=== PATIENT | female | born 1940 | race Caucasian/White ===

== ENCOUNTER 2017-10-18 21:42 | Emergency (ER) | payer MEDICARE, BC ==
[2017-10-18 22:15] VITALS: BP 129/64; PULSE 71; O2SAT 99
[2017-10-18] MEDS ORDERED: XYLOCAINE 1% HCL 20 ML MDV IJ ONE (22:34)
[2017-10-18] MEDS ORDERED: Adacel Vial IM ONE ×2 (22:34→22:45)
--- NOTE | 2017-10-18 22:42 | ERPHSYRPT ---
- History of Present Illness Time Seen by Provider: 10/18/17 22:21 Source: patient Exam Limitations: no limitations Patient Subjective Stated Complaint: pt states she got her feet caught in her walker and fell backwards and hit her head. Triage Nursing Assessment: pt alert and oreinted. answers questions approp. respirations nonlabored with lungs cta. respirations nonlabored with lungs cta. pt ambulatory with walker- steady gait noted. dried blood to rt posterior head. Physician History: Pt states, she fell, when standing up from the computer chair, her leg got cought up in the walker, fell backward, hit her head against the floor, denies LOC, severe headaches, nausea, vomiting or other injury, except small laceration to the right hand. Occurred: just prior to arrival Severity: mild Head Injury Location: occipital Method of Injury: fell Loss of Consciousness: no loss of consciousness Associated Symptoms: denies symptoms Allergies/Adverse Reactions: albuterol Adverse Reaction (Verified 10/18/17 23:47) UPSET STOMACH ciprofloxacin [From Cipro] Adverse Reaction (Verified 10/18/17 23:47) UPSET STOMACH ciprofloxacin HCl [From Cipro] Adverse Reaction (Verified 10/18/17 23:47) UPSET STOMACH Sulfa (Sulfonamide Antibiotics) Adverse Reaction (Verified 10/18/17 23:47) UPSET STOMACH Home Medications: Budesonide/Formoterol Fumarate [Symbicort 160-4.5 Mcg Inhaler] 2 puff IH BID 03/08 [History] Cholecalciferol (Vitamin D3) [Vitamin D] 1,000 unit PO DAILY 04/05/13 [ History] Clonazepam 1 mg PO BID 04/05/13 [History] Duloxetine HCl [Cymbalta] 60 mg PO DAILY 04/05/13 [History] Levalbuterol HCl [Xopenex] 0.63 mg IH TID 04/05/13 [History] Levothyroxine Sodium 112 Mcg [Synthroid 112 Mcg] 125 mcg PO DAILY 04/05/13 [History] Tiotropium [place] Inhaler [Spiriva 18 Mcg/Cap Inhaler] 2 puffs IN BID [History] Gabapentin [Neurontin] 300 mg PO DAILY 08/23/13 [History] Atorvastatin Calcium [Lipitor 20MG Tablet] 20 mg PO HS 02/12/17 [History] Iron,Carb/Vit C/Vit B12/Folic [Iron 100 Plus Tablet] 1 each PO DAILY 02/12/17 [ History] Hx Tetanus, Diphtheria Vaccination/Date Given: No (unknown) Hx Influenza Vaccination/Date Given: Yes (2012) Hx Pneumococcal Vaccination/Date Given: Yes - Review of Systems Constitutional: No Symptoms Skin: Other (small laceration to scalp and right hand) All Other Systems: Reviewed and Negative - Past Medical History Pertinent Past Medical History: Yes Neurological History: Peripheral Neuropathy ENT History: Cataracts Cardiac History: High Cholesterol Respiratory History: Asthma, COPD, Emphysema Endocrine Medical History: Diabetes Type II Musculoskeletal History: Fibromyalgia, Fractures, Osteoarthritis, Osteoporosis GI Medical History: Diverticulitis, Esophageal Disorder, GERD, Gallbladder Disease, GI Bleed, Hemorrhoids, Hernia, Irritable Bowel, Polyps History: No Pertinent History Psycho-Social History: Anxiety, Depression Female Reproductive Disorders: Breast Cancer, Cervical Cancer Other Medical History: "LYMPH NODES DO NOT REMOVE THE BLOOD FROM MY LEGS" States "new dx of scleroderma" - Past Surgical History Past Surgical History: Yes Neuro Surgical History: No Pertinent History Cardiac: No Pertinent History Respiratory: No Pertinent History Gastrointestinal: Appendectomy, Cholecystectomy, Colon Resection Genitourinary: Other Musculoskeletal: No Pertinent History Female Surgical History: Section, Hysterectomy Other Surgical History: rt breast cancer removed,carpel tunnel bilateral, cataracts, THYROIDECTOMY,BLADDER repair, left ankle fx repair - Social History Smoking Status: Never smoker Exposure to second hand smoke: No Drug Use: none Patient Lives Alone: No - Nursing Vital Signs Nursing Vital Signs: Initial Vital Signs Temperature 98.6 F 10/18/17 22:00 Pulse Rate 71 10/18/17 22:00 Respiratory Rate 18 10/18/17 22:00 Blood Pressure 129/64 10/18/17 22:00 O2 Sat by Pulse Oximetry 99 10/18/17 22:00 Pain Scale Pain Intensity 5 - Michael Coma Score Best Eye Response (Michael): (4) open spontaneously Best Verbal Response ([place]): (5) oriented Best Motor Response (Michael): (6) obeys commands Michael Total: 15 - Physical Exam General Appearance: no apparent distress Head Injury: lacerations (1.5 cm scalp laceration to the right occipital area, no bleeding, or large hematoma), tenderness Eye Exam: bilateral eye: PERRL, EOMI ENT Exam: No evidence of ENT injury Neck Exam: supple, trachea midline, normal alignment, normal inspection, No muscle spasm, No pain on movement of neck, No mid-line tenderness Cardiovascular/Respiratory Exam: chest non-tender, normal breath sounds, regular rate/rhythm, heart sounds normal, no ecchymosis, no JVD, no respiratory distress Gastrointestinal/Abdominal Exam: soft, non tender, no distention, no mass, no guarding Back Exam: other (kyphotic spine, nontender.), No CVA tenderness Extremity Exam: non-tender, normal inspection (except 1 cm superficial skintear to the right dorsal hand, no swelling, bleeding or deformity.) Mental Status Exam: alert, oriented x 3, cooperative director gift Exam: normal speech Coordination/Gait Exam: normal gait Motor/Sensory Exam: no motor deficit Skin Exam: normal color, warm, dry SpO2 Interpretation: normal SpO2: 99 Oxygen Delivery: Room Air Procedures - Laceration/Wound Repair Head Wound Location: head Wound Length (cm): 1.5 Wound's Depth, Shape: into muscle, linear Wound Explored: clean Irrigated: Yes Hibiclens Prep: No Anesthesia: local, 1% Lidocaine Volume Anesthetic (ccs): 5 Wound Repaired With: Powell Number of Sutures: 3 Sterile Dressing Applied?: Yes Progress: 10/18/17 23:59 Pt tolerated stapling well. - Course Nursing assessment & vital signs reviewed: Yes - CT Exams Head CT Interpretation: Negative, Tele-radiologist Report Ordered Tests: Active Orders 24 hr Category Date Time Status Prepare for Sutures STAT Care 10/18/17 22:34 Active Sutures STAT Care 10/18/17 22:35 Active Wound Care STAT Care 10/18/17 22:34 Active HEAD WITHOUT CONTRAST [CT] Stat Exams 10/18/17 22:35 Taken Medication Summary Discontinued Medications Generic Name Dose Route Start Last Admin Trade Name Freq PRN Reason Stop Dose Admin Diphtheria/Tetanus/Acell Pertussis 0.5 ml 10/18/17 22:34 10/18/17 22:53 Adacel Vial IM 10/18/17 22:35 0.5 ml .ONCE ONE Administration Diphtheria/Tetanus/Acell Pertussis Confirm 10/18/17 22:45 Adacel Vial Administered 10/18/17 22:46 Dose 0.5 ml IM .STK-MED ONE Lidocaine HCl 5 ml 10/18/17 22:34 10/18/17 22:54 Xylocaine 1% Hcl 20 Ml Mdv IJ 10/18/17 22:35 5 ml STAT ONE Administration Lidocaine HCl Confirm 10/18/17 22:44 Xylocaine 1% Hcl 20 Ml Mdv Administered 10/18/17 22:45 Dose 5 ml .ROUTE .STK-MED ONE - Progress Progress: unchanged Progress Note: 10/18/17 23:59 Pt has been stable, alert and oriented x4, denies severe headaches, nausea. I discussed CT result with her and her , she is being discharged home in good condition to rest x 2-3 days, and follow up with her physician, return if severe headaches, vomiting, lethargy ! Counseled pt/family regarding: diagnosis, need for follow-up, rad results - Departure Time of Disposition: 00:01 Departure Disposition: Home Clinical Impression: Occipital scalp laceration Qualifiers: Encounter type: initial encounter Qualified Code(s): S01.01XA - Laceration without foreign body of scalp, initial encounter Condition: Stable Critical Care Time: No Referrals: ELIZABETH RAMSEY [Primary Care Provider] - Instructions: Minor Head Injury (DC), Laceration Repair With Danial (DC) Additional Instructions: Rest x 2-3 days, follow up with your physician in 2-3 days, removal of the danial after 1 week! return if severe headaches, vomiting, lethargy !
[2017-10-18] MEDS ORDERED: XYLOCAINE 1% HCL 20 ML MDV ONE (22:44)
--- NOTE | 2017-10-19 14:42 | XRAY ---
Exam: CT of the head without IV contrast from 10/18/2017. CTDI: 48.76 Comparison: CT of the head without IV contrast from 09/17/2017. Indication: 77-year-old female patient fell, striking right posterior aspect of head against floor. Technique: Non-IV contrast axial images were obtained through the brain. Reconstructed coronal and sagittal images were created and reviewed. Findings: The ventricles appear of normal size. No focal mass effect or midline shift is seen. There is no evidence of acute intracranial bleed or abnormal extra-axial fluid collection. No significant chronic microvascular white matter disease is seen. No low attenuation territorial infarct or evidence of focal intracranial edema is seen. There is mild prominence of the cortical sulci and cisterns, not inappropriate for the patient's age. I again see mild hyperostosis frontalis interna. Atherosclerotic vascular calcification is seen within the distal vertebral arteries bilaterally as well as the internal carotid arteries within the carotid siphons. 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 The remainder of the paranasal sinuses appears essentially clear. The mastoid air cells are adequately aerated without mastoid effusion. No fracture of the calvarium of the skull is seen. No significant scalp hematoma is seen. Impression: 1. No acute intracranial bleed or other acute intracranial process is seen. This is unchanged from 09/17/2017. 2. Mild hyperostosis frontalis interna. This is unchanged. No fracture of the calvarium of the skull is seen.
== END 2017-10-19 00:30 | disposition home or self-care (01) ==
LOC: ED 21:42
DX: S01.01XA Laceration without foreign body of scalp, initial encounter (principal); W01.198A Fall on same level from slipping, tripping and stumbling with subsequent striking against other object, initial encounter; Y92.009 Unspecified place in unspecified non-institutional (private) residence as the place of occurrence of the external cause; Z79.899 Other long term (current) drug therapy
CPT/HCPCS: 12001; 70450; 90471; 90715; 96372; 99284

== ENCOUNTER 2018-09-03 11:33 | Emergency (ER) | payer MEDICARE, BC | END 2018-09-03 12:03 | disposition left against medical advice (07) | LOC: ED 11:33 | DX: K92.1 Melena (principal) | CPT/HCPCS: 99282; G0463 ==

== ENCOUNTER 2018-09-03 13:07 | Emergency (ER) | payer MEDICARE, BC ==
--- NOTE | 2018-09-03 13:49 | ERPHSYRPT ---
- History of Present Illness Time Seen by Provider: 09/03/18 13:30 Source: patient, family Exam Limitations: no limitations Patient Subjective Stated Complaint: pt here for bleeding from rectum for a couple days now. pt denies pain. but states she is nauseated, has not eat since , she was to have colonoscopy on wednesday but she felt to bad and canceled the scope, Triage Nursing Assessment: pt arrived per wc, alert, pale, skin warm and dry. resp easy. abd soft, nontender. no edema Physician History: 78 y/o white female Amish, presents with intermittent rectal bleeding for less than 48 hours. 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 Camacho ([place] ), ordered a bowel prep for this past and a colonoscopy for yesterday. pt cancelled the colonscopy because pt vomited up prep and had diarrhea. it persisted and blood noted in bms. pt has not eaten or drank well since she began prep. of note, pts stated pt was in [facility] a couple of months ago for sig anemia and was on iron infusion tx. pt not on anticoag tx, denies liver dz, denies xs asa/nsaid use. pt denies abd pain. pt did recently undergo a normal upper endoscopy per pts spouse. pt is soa when ambulating Timing/Duration: day(s) (2) Severity: moderate Associated Symptoms: nausea, shortness of breath (when attempts to ambulate), No vomiting, No abdominal pain Allergies/Adverse Reactions: albuterol Adverse Reaction (Verified 09/03/18 13:27) UPSET STOMACH ciprofloxacin [From Cipro] Adverse Reaction (Verified 09/03/18 13:27) UPSET STOMACH ciprofloxacin HCl [From Cipro] Adverse Reaction (Verified 09/03/18 13:27) UPSET STOMACH Sulfa (Sulfonamide Antibiotics) Adverse Reaction (Verified 09/03/18 13:27) UPSET STOMACH Home Medications: Budesonide/Formoterol Fumarate [Symbicort 160-4.5 Mcg Inhaler] 2 puff IH BID 03/08 [History] Cholecalciferol (Vitamin D3) [Vitamin D] 1,000 unit PO DAILY 04/05/13 [ History] Clonazepam 1 mg PO BID 04/05/13 [History] Duloxetine HCl [Cymbalta] 60 mg PO DAILY 04/05/13 [History] Levalbuterol HCl [Xopenex] 0.63 mg IH TID 04/05/13 [History] Levothyroxine Sodium 112 Mcg [Synthroid 112 Mcg] 125 mcg PO DAILY 04/05/13 [History] Tiotropium [place] Inhaler [Spiriva 18 Mcg/Cap Inhaler] 2 puffs IN BID [History] Gabapentin [Neurontin] 300 mg PO DAILY 08/23/13 [History] Iron,Carb/Vit C/Vit B12/Folic [Iron 100 Plus Tablet] 1 each PO DAILY 02/12/17 [ History] Fluconazole 100 mg [Diflucan 100 MG] 100 mg DAILY 09/03/18 [History] Furosemide 20 mg [Lasix 20 mg] 20 mg DAILY 09/03/18 [History] Hydroxyzine HCl 25 mg PO 09/03/18 [History] Omeprazole 40 mg DAILY 09/03/18 [History] Solifenacin Succinate [Vesicare] 09/03/18 [History] Hx Tetanus, Diphtheria Vaccination/Date Given: No (unknown) Hx Influenza Vaccination/Date Given: Yes (2013) Hx Pneumococcal Vaccination/Date Given: Yes Immunizations Up to Date: Yes - Review of Systems Constitutional: Malaise, Weakness Eyes: No Symptoms Ears, Nose, & Throat: No Symptoms Respiratory: Dyspnea on Exertion ([place]) Cardiac: No Symptoms Abdominal/Gastrointestinal: Nausea, Diarrhea, No Abdominal Pain, No Vomiting Genitourinary Symptoms: No Symptoms Musculoskeletal: No Symptoms Skin: No Symptoms Neurological: No Symptoms Psychological: No Symptoms Endocrine: No Symptoms Hematologic/Lymphatic: Anemia Immunological/Allergic: No Symptoms All Other Systems: Reviewed and Negative - Past Medical History Pertinent Past Medical History: Yes Neurological History: Peripheral Neuropathy ENT History: Cataracts Cardiac History: High Cholesterol Respiratory History: Asthma, COPD, Emphysema Endocrine Medical History: Diabetes Type II Musculoskeletal History: Fibromyalgia, Fractures, Osteoarthritis, Osteoporosis GI Medical History: Crohns Disease, Diverticulitis, Esophageal Disorder, GERD, Gallbladder Disease, GI Bleed, Hemorrhoids, Hernia, Irritable Bowel, Polyps History: No Pertinent History Psycho-Social History: Anxiety, Depression Female Reproductive Disorders: Breast Cancer, Cervical Cancer Other Medical History: "LYMPH NODES DO NOT REMOVE THE BLOOD FROM MY LEGS" States "new dx of scleroderma" - Past Surgical History Past Surgical History: Yes Neuro Surgical History: No Pertinent History Cardiac: No Pertinent History Respiratory: No Pertinent History Gastrointestinal: Appendectomy, Cholecystectomy, Colon Resection Genitourinary: Other Musculoskeletal: No Pertinent History Female Surgical History: Section, Hysterectomy Other Surgical History: rt breast cancer removed,carpel tunnel bilateral, cataracts, THYROIDECTOMY,BLADDER repair, left ankle fx repair - Social History Smoking Status: Never smoker Exposure to second hand smoke: No Drug Use: none Patient Lives Alone: No - Female History Hx Last Menstrual Period: post Hx Now: No - Nursing Vital Signs Nursing Vital Signs: Initial Vital Signs Pulse Rate 94 H 09/03/18 14:13 Respiratory Rate 18 09/03/18 14:13 Blood Pressure 120/59 09/03/18 14:13 O2 Sat by Pulse Oximetry 96 09/03/18 14:13 Pain Scale Pain Intensity 0 - Physical Exam General Appearance: mild distress, alert, anxiety, lethargy, thin Eye Exam: PERRL/EOMI, pale conjunctivae Ears, Nose, Throat Exam: normal ENT inspection, dry mucous membranes Neck Exam: normal inspection, non-tender, supple, full range of motion Respiratory Exam: normal breath sounds, lungs clear, airway intact, No chest tenderness, No respiratory distress Cardiovascular Exam: regular rate/rhythm, normal heart sounds, normal peripheral pulses Gastrointestinal/Abdomen Exam: soft, normal bowel sounds, No tenderness Pelvic Exam: not done Rectal Exam: not done Back Exam: normal inspection, normal range of motion, No CVA tenderness, No vertebral tenderness Extremity Exam: normal inspection, normal range of motion, pelvis stable Neurologic Exam: alert, oriented x 3, cooperative, deburring technician II-XII nml as tested Skin Exam: pale Lymphatic Exam: No adenopathy SpO2 Interpretation: normal O2 Delivery: Room Air - Course Nursing assessment & vital signs reviewed: Yes Ordered Tests: Active Orders 24 hr Category Date Time Status [employer] Supervisor STAT Care 09/03/18 13:53 Active IV Insertion STAT Care 09/03/18 13:52 Active CBC W DIFF Stat Lab 09/03/18 13:30 Completed CMP Stat Lab 09/03/18 13:30 Completed PROTIME WITH INR Stat Lab 09/03/18 13:30 Completed Medication Summary Discontinued Medications Generic Name Dose Route Start Last Admin Trade Name Freq PRN Reason Stop Dose Admin Sodium Chloride 1,000 mls @ 999 mls/hr 09/03/18 13:52 09/03/18 14:04 Sodium Chloride 0.9% 1000 Ml IV 09/03/18 14:52 999 mls/hr .Q1H1M STA Administration Sodium Chloride Confirm 09/03/18 14:02 Sodium Chloride 0.9% 1000 Ml Administered 09/03/18 14:03 Dose 1,000 mls @ ud .ROUTE .STK-MED ONE Ondansetron HCl 4 mg 09/03/18 13:52 09/03/18 14:05 Zofran 4 Mg/2 Ml Vial IV 09/03/18 13:53 4 mg STAT ONE Administration Ondansetron HCl Confirm 09/03/18 14:02 Zofran 4 Mg/2 Ml Vial Administered 09/03/18 14:03 Dose 4 mg .ROUTE .STK-MED ONE Lab/Rad Data: Laboratory Result Diagrams 09/03/18 13:30 09/03/18 13:30 Laboratory Results 09/03/18 09/03/18 09/03/18 Range/Units 13:30 13:30 13:30 WBC (4.0-10.5) K/mm3 RBC (4.1-5.4) M/mm3 Hgb (12.0-16.0) gm/dl Hct (35-47) % MCV (78-100) fl MCH (26-32) pg MCHC (32-36) g/dl RDW (11.5-14.0) % Plt Count (150-450) K/mm3 MPV (6-9.5) fl Gran % (36.0-66.0) % Eos # (Auto) (0-0.5) Absolute Lymphs (auto) (1.0-4.6) Absolute Monos (auto) (0.0-1.3) Lymphocytes % (24.0-44.0) % Monocytes % (0.0-12.0) % Eosinophils % (0.00-5.0) % Basophils % (0.0-0.4) % Absolute Granulocytes (1.4-6.9) Basophils # (0-0.4) PT 18.3 H (9.95-12.35) SECONDS INR 1.57 (0.8-3.0) Sodium 140 (137-145) mmol/L Potassium 4.3 (3.5-5.1) mmol/L Chloride 105 (98-107) mmol/L Carbon Dioxide 17 L (22-30) mmol/L Anion Gap 23.3 H (5-15) MEQ/L BUN 48 H (7-17) mg/dL Creatinine 1.15 H (0.52-1.04) mg/dL Estimated GFR 48.8 ML/MIN Glucose 116 H (74-106) mg/dL Calcium 8.8 (8.4-10.2) mg/dL Total Bilirubin 0.70 (0.2-1.3) mg/dL AST 43 H (14-36) U/L ALT 37 H (0-35) U/L Alkaline Phosphatase 118 (38-126) U/L Serum Total Protein 5.7 L (6.3-8.2) g/dL Albumin 2.9 L (3.5-5.0) g/dL ABO Group O Rh Factor POSITIVE Antibody Screen NEGATIVE (NEGATIVE) 09/03/18 Range/Units 13:30 WBC 11.4 H (4.0-10.5) K/mm3 RBC 2.81 L (4.1-5.4) M/mm3 Hgb 7.7 L (12.0-16.0) gm/dl Hct 25.6 L (35-47) % MCV 91.1 (78-100) fl MCH 27.4 (26-32) pg MCHC 30.1 L (32-36) g/dl RDW 16.0 H (11.5-14.0) % Plt Count 252 (150-450) K/mm3 MPV 10.6 H (6-9.5) fl Gran % 77.5 H (36.0-66.0) % Eos # (Auto) 0.01 (0-0.5) Absolute Lymphs (auto) 1.74 (1.0-4.6) Absolute Monos (auto) 0.81 (0.0-1.3) Lymphocytes % 15.2 L (24.0-44.0) % Monocytes % 7.1 (0.0-12.0) % Eosinophils % 0.1 (0.00-5.0) % Basophils % 0.1 (0.0-0.4) % Absolute Granulocytes 8.85 H (1.4-6.9) Basophils # 0.01 (0-0.4) PT (9.95-12.35) SECONDS INR (0.8-3.0) Sodium (137-145) mmol/L Potassium (3.5-5.1) mmol/L Chloride (98-107) mmol/L Carbon Dioxide (22-30) mmol/L Anion Gap (5-15) MEQ/L BUN (7-17) mg/dL Creatinine (0.52-1.04) mg/dL Estimated GFR ML/MIN Glucose (74-106) mg/dL Calcium (8.4-10.2) mg/dL Total Bilirubin (0.2-1.3) mg/dL AST (14-36) U/L ALT (0-35) U/L Alkaline Phosphatase (38-126) U/L Serum Total Protein (6.3-8.2) g/dL Albumin (3.5-5.0) g/dL ABO Group Rh Factor Antibody Screen (NEGATIVE) - Progress Progress: improved Discussed with DrMarleen: Other (dr. sammi rosales [facility] ed) Counseled pt/family regarding: lab results, diagnosis - Departure Departure Disposition: Home Clinical Impression: Anemia, Rectal bleeding Condition: Stable Critical Care Time: No Referrals: ELIZABETH RAMSEY [Primary Care Provider] -
[2018-09-03] MEDS ORDERED: Zofran 4 MG/2 ML VIAL IV ONE (13:52)
[2018-09-03] MEDS ORDERED: Sodium Chloride 0.9% 1000 ML 1,000 ML IV STA (13:52)
[2018-09-03] MEDS ORDERED: Sodium Chloride 0.9% 1000 ML 1,000 ML ONE (14:02)
[2018-09-03] MEDS ORDERED: Zofran 4 MG/2 ML VIAL ONE (14:02)
[2018-09-03 14:08] LABS: BASOPHIL % 0.1 % (0.0-0.4); Basophil (Absolute #) 0.01 (0-0.4); Eosinophil % 0.1 % (0.00-5.0); Eosinophil (Absolute #) 0.01 (0-0.5); Granulocyte Absolute (ANC) 8.85 (1.4-6.9); Granulocytes % 77.5 % (36.0-66.0); Hematocrit 25.6 % (35-47); Hemoglobin 7.7 gm/dl (12.0-16.0); Lymphocyte (Absolute #) 1.74 (1.0-4.6); Lymphocytes % 15.2 % (24.0-44.0); Mean Cell Volume 91.1 fl (78-100); Mean Corpuscular Hemoglobin 27.4 pg (26-32); Mean Corpuscular Hgb Concent. 30.1 g/dl (32-36); Mean Platelet Volume 10.6 fl (6-9.5); Monocyte (Absolute #) 0.81 (0.0-1.3); Monocytes % 7.1 % (0.0-12.0); Platelet Count 252 K/mm3 (150-450); Red Blood Count 2.81 M/mm3 (4.1-5.4); White Blood Count 11.4 K/mm3 (4.0-10.5)
[2018-09-03 14:18] LABS: INR 1.57 (0.8-3.0); PROTIME 18.3 SECONDS (9.95-12.35)
[2018-09-03 14:24] LABS: ALBUMIN 2.9 g/dL (3.5-5.0); ANION GAP 23.3 MEQ/L (5-15); BILIRUBIN,TOTAL 0.7 mg/dL (0.2-1.3); Calcium 8.8 mg/dL (8.4-10.2); Creatinine 1 1.15 mg/dL (0.52-1.04); Potassium 4.3 mmol/L (3.5-5.1); Total Protein 5.7 g/dL (6.3-8.2)
[2018-09-03 15:00] LABS: ABO TYPING O; RH TYPING POSITIVE
[2018-09-03 15:05] LABS: Antibody Screen NEGATIVE (NEGATIVE)
[2018-09-03 16:01] VITALS: BP 115/92; PULSE 90; O2SAT 98
== END 2018-09-03 16:20 | disposition home or self-care (01) ==
LOC: ED 13:07
DX: D64.9 Anemia, unspecified (principal); K62.5 Hemorrhage of anus and rectum; E11.9 Type 2 diabetes mellitus without complications; J44.9 Chronic obstructive pulmonary disease, unspecified; M81.0 Age-related osteoporosis without current pathological fracture; E78.00 Pure hypercholesterolemia, unspecified; K21.9 Gastro-esophageal reflux disease without esophagitis; Z90.49 Acquired absence of other specified parts of digestive tract
CPT/HCPCS: 36000; 36415; 80053; 85025; 85610; 86850; 86900; 86901; 93041; 96360; 96374; 99285; J2405